=== PATIENT | male | born 1970 | race Caucasian/White ===

== ENCOUNTER 2022-07-27 06:25 | Day surgery (SDC) | payer BC, SELFPAY ==
[2022-07-21 16:26] VITALS: BMI 37.9
--- NOTE | 2022-07-26 12:00 | HO.ANESPROP2 ---
Documented by User: Flori Smiley NP 07/26/22 12:00 HPI - Anesthesia Eval Consult details Narrative: 51yo M for Colonoscopy [facility] Past Medical History Medical History No pertinent past medical history Surgical History Surgical History History of tonsillectomy Hx of colonoscopy Social History Social History Patient Tobacco Use Status: Never used Tobacco Use of substances other than those prescribed or required for medical reasons: No Are you DNR?: No Advance Directives: No Advance Directives Information Provided: Yes Meds Allergies Allergy/AdvReac Type Severity Reaction Status Date / Time No Known Allergies Allergy Verified 07/21/22 16:26 Home Medications Medication Instructions Recorded Confirmed Last Taken Type No Known Home Meds 07/21/22 07/21/22 Unknown History Exam Exam Date and Time: July 26, 2022 1200 Height,Weight and Vital Signs: Height 5 ft 7 in Weight 109.769 kg Assessment and Plan Assessment Anesthesia Assessment: Chart Reviewed Documented by User: Regina Villarreal MD 07/27/22 07:30 [facility] Past Medical History Medical History No pertinent past medical history Surgical History Surgical History History of tonsillectomy Hx of colonoscopy History of Problems with Anesthesia: No Social History Social History Patient Tobacco Use Status: Never used Tobacco Use of substances other than those prescribed or required for medical reasons: No Are you DNR?: No Advance Directives: No Advance Directives Information Provided: Yes Meds Allergies Allergy/AdvReac Type Severity Reaction Status Date / Time No Known Allergies Allergy Verified 07/21/22 16:26 Home Medications Medication Instructions Recorded Confirmed Last Taken Type No Known Home Meds 07/21/22 07/21/22 Unknown History Exam Airway Mallampati Class: III TM Dist: >3cm Neck ROM: Full Loose/Missing/Broken Teeth: No Heart: RRR Lungs: CTA Assessment and Plan Assessment Anesthesia Assessment: Anesthesia Plan Discussed Final Anesthetic Review History of Problems with Anesthesia: No NPO: Yes ASA Class: I Final Preanesthetic Review: Meds/Allgs Chart Reviewed, Consent Obtained/Reviewed and Anes Risks/Benef Reviewed Patient Risk: Low Procedure Risk: Low Anesthetic Plan Anesthetic Plan: MAC: Disposition: Standard PACU
--- NOTE | 2022-07-27 | ECG_ITS ---
Test Reason : aarythmia Blood Pressure : / mmHG Vent. Rate : 057 BPM Atrial Rate : 057 BPM P-R Int : 164 ms QRS Dur : 100 ms QT Int : 426 ms P-R-T Axes : 029 032 024 degrees QTc Int : 414 ms Sinus bradycardia Otherwise normal ECG No previous ECGs available Referred By: Regina Villarreal Electronically Signed By:NADEGE ARANGO
[2022-07-27 06:47] VITALS: BMI 32.3
[2022-07-27 06:50] VITALS: BP 149/78; PULSE 68; RESP 18; TEMP 36.1; O2SAT 98; BMI 32.3
[2022-07-27 07:30] VITALS: BP 149/78; PULSE 68; RESP 18; TEMP 36.1; O2SAT 98
[2022-07-27] MEDS: Lactated Ringers 1,000 ML 100 ML IVCONT (07:42)
[2022-07-27 08:30] VITALS: BP 93/47; PULSE 64; RESP 20; TEMP 36.2; O2SAT 100
--- NOTE | 2022-07-27 08:32 | P.BOP_ITS ---
Brief Operative Note Date of Service: 07/27/22 Pre-op diagnosis: Screening Post-op diagnosis: other (Polyps) Procedure: Colonoscopy to the cecum and TI with bx/removal of polyps Surgeon: Hemant Thomas Anesthesia: MAC Was an Administrative Assistant Coordinator used for this Procedure?: No Estimated blood loss (mL): 2.0 Pathology: other (A. Ileocecal valve polyps) Condition: stable Disposition: PACU
[2022-07-27 08:45] VITALS: BP 138/84; PULSE 58; RESP 17; TEMP 36.3; O2SAT 100
--- NOTE | 2022-07-27 08:57 | OP_ITS ---
SURGEON: Hemant Thomas MD INDICATIONS: The patient presents for evaluation of colorectal cancer screening and family history of colon cancer. Full consent has been obtained from him for this, including risks of bleeding and perforation. PREOPERATIVE DIAGNOSIS: POSTOPERATIVE DIAGNOSIS: PROCEDURE PERFORMED: Colonoscopy to the cecum and terminal ileum with biopsy and removal of polyps. ESTIMATED BLOOD LOSS: COMPLICATIONS: ANESTHESIA: Monitored anesthesia care. ASSISTANTS: SPECIMENS: PREOPERATIVE DIAGNOSES: Colorectal cancer screening and family history of colon cancer. POSTOPERATIVE DIAGNOSES: Colorectal cancer screening and family history of colon cancer, small colon polyps, mild diverticulosis, small internal hemorrhoids. DESCRIPTION OF PROCEDURE: The patient was placed in the left lateral decubitus position. The digital rectal exam revealed no abnormalities. The Olympus video pediatric colonoscope was entered into the rectum and advanced easily to the cecum. Once in the cecum, I did identify normal-appearing cecal pouch with appendiceal orifice. The terminal ileum was cannulated and appeared normal. The scope was withdrawn back into the colon. The entire cecum appeared normal. The ileocecal valve appeared normal other than two approximately 3 mm probable hyperplastic polyps which were biopsied and completely removed with cold biopsy forceps. The scope was slowly withdrawn assessing all mucosal surfaces carefully. Preparation was excellent. I did not visualize any other polyps, colitis, or angiodysplasia. There was a mild amount of sigmoid diverticulosis. In the rectum, the scope was retroflexed visualizing internal hemorrhoids, but no other pathology. The rectal mucosa appeared normal. The scope was straightened out and withdrawn from the patient. He tolerated the procedure well and was returned to the recovery area in stable condition. IMPRESSION: 1. Small colon polyps, status post biopsy removal. 2. Diverticulosis. 3. Internal hemorrhoids. PLAN: The results of biopsies will be checked. I would recommend a repeat colonoscopy in 5 years for further screening given the family history of colon cancer. He will otherwise see me on a p.r.n. basis. MD KAMILLE Velazquez/PONCHO / [id number]
== END 2022-07-27 09:18 | disposition home or self-care (01) ==
PROVIDERS: Visit Provider Internal Medicine
PROC: 0DJD8ZZ Inspection of Lower Intestinal Tract, Via Natural or Artificial Opening Endoscopic (ICD-10-PCS; CPT 45378; principal; 2022-07-27 07:30)
DX: Z12.11 Encounter for screening for malignant neoplasm of colon (principal); Z80.0 Family history of malignant neoplasm of digestive organs; K63.5 Polyp of colon; K57.30 Diverticulosis of large intestine without perforation or abscess without bleeding; K64.8 Other hemorrhoids
CPT/HCPCS: 45380; 88305; 93005